=== PATIENT | male | born 2000 | race Caucasian/White ===

== ENCOUNTER 2019-05-10 15:56 | Emergency (ER) | payer OTHER, SELFPAY ==
[2019-05-10 16:17] VITALS: BP 126/69; PULSE 87; RESP 16; TEMP 36.7; O2SAT 98
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
[2019-05-10 17:19] LABS: ALT 23 U/L (16-63); AST 21 U/L (15-37); Albumin 4.5 g/dL (3.4-5.0); Alkaline Phosphatase 96 U/L (46-116); Anion Gap 9.2 mmol/L (3-11); BUN 14 mg/dL (7-18); Bilirubin, Total 0.5 mg/dL (0.2-1.0); CO2 29.8 mmol/L (21.0-32.0); CREATININE 1.07 mg/dL (0.70-1.30); Calcium 9.2 mg/dL (8.5-10.1); Chloride 103 mmol/L (98-107); Glucose 112 mg/dL (70-100); Potassium 4.4 mmol/L (3.5-5.1); Sodium 142 mmol/L (136-145); Total Protein 7.9 g/dL (6.4-8.2)
[2019-05-10 17:20] LABS: Troponin I < 0.05 ng/mL (0.00-0.06)
[2019-05-10 17:22] LABS: Abs Immature Grans 0.01 k/cumm (0.0-0.09); Absolute Basophil Count 0.02 k/cumm (0.0-0.2); Absolute Eosinophil Count 0.05 k/cumm (0.0-0.7); Absolute Lymphocyte Count 1.06 k/cumm (1.2-3.4); Basophils % 0.2; Eosinophils % 0.4; HCT 42.6 % (40.0-50.0); HGB 15.7 g/dL (13.5-17.5); Immature Grans % 0.1; Lymphocytes % 9.3; Mean Corp. HGB Concentration 36.9 g/dL (32.0-36.0); Mean Corpuscular Hemoglobin 31.5 pg (27.0-33.0); Mean Corpuscular Volume 85.4 fL (80-95); Mean Platelet Volume 9.7 fL (8.0-11.0); Monocytes % 6.8; Neutrophils % 83.2; Platelet Count 238 x1000/uL (130-400); RBC 4.99 m/cumm (4.50-6.00); RBC Distribution Width 12.5 % (11.8-14.1); White Blood Cell Count 11.39 k/cumm (4.4-10.8)
[2019-05-10 17:23] LABS: Absolute Monocyte Count 0.77 k/cumm (0.11-0.7); Absolute Neutrophil Count 9.48 k/cumm (1.2-6.7)
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
[2019-05-10 17:56] VITALS: BP 117/64; PULSE 78; O2SAT 98
[2019-05-10] MEDS: Normal Saline Flush 10 ML SYR IVP (18:10)
[2019-05-10] MEDS: Ketorolac 30 MG/ML VIAL IVP (18:10)
[2019-05-10 18:45] VITALS: BP 126/69; PULSE 87; RESP 16; TEMP 36.7; O2SAT 98
== END 2019-05-10 18:21 | disposition home or self-care (01) ==
PROVIDERS: Emergency Provider Emergency Medicine
DX: S16.1XXA Strain of muscle, fascia and tendon at neck level, initial encounter (principal); S60.222A Contusion of left hand, initial encounter; V47.5XXA Car driver injured in collision with fixed or stationary object in traffic accident, initial encounter
CPT/HCPCS: 36415; 80053; 99284; 70450; 71046; 72125; 83735; 84484; 85025; J1885; L0172